=== PATIENT | male | born 1995 | race African-American/Black ===

== ENCOUNTER 2016-10-20 11:51 | Emergency (ER) | payer MEDICAID ==
[~2016-10-20] VITALS: Ht 188 cm; Wt 96.8 kg
[2016-10-20 13:50] VITALS: BP 149/95
[2016-10-20] MEDS ORDERED: LIDOCAINE HCL/PF 1% 2 ML VIAL IM ONE (14:00)
[2016-10-20] MEDS ORDERED: CefTRIAXone SODIUM 1 GM/VIAL IM ONE (14:00)
[2016-10-20] MEDS ORDERED: HYDROCODONE/ACETAMINOPHEN 5-325 MG TABLET PO ONE (14:30)
== END 2016-10-20 14:46 | disposition home or self-care (01) ==
LOC: EMS 11:53
DX: L03.313 Cellulitis of chest wall (principal)
CPT/HCPCS: 96372; 99283; J0696; J3490